=== PATIENT | female | born 1935 | race Native Hawaiian/Other Pacific Islander ===

== ENCOUNTER 2021-09-08 13:33 | Emergency (ER) | payer OTHER ==
[~2021-09-08] VITALS: Ht 157.5 cm; Wt 57.2 kg
[2021-09-08 13:36] VITALS: BP 142/62; TEMP 98.3
[2021-09-08 14:04] LABS: PLATELET COUNT 240 K/uL (152-353)
[2021-09-08 14:13] LABS: POTASSIUM 3.7 mmol/L (3.6-5.2)
== END 2021-09-08 16:18 | disposition home or self-care (01) ==
LOC: ED 13:33
PROVIDERS: Hospitalist
DX: K59.09 Other constipation (principal); E86.0 Dehydration; R11.0 Nausea
CPT/HCPCS: 80053; 85027; 96360; 96374; 99284; J2405

== ENCOUNTER 2021-09-13 18:29 | Emergency (ER) | payer OTHER ==
[~2021-09-13] VITALS: Ht 157.5 cm; Wt 57.2 kg
[2021-09-13 18:39] VITALS: TEMP 97
[2021-09-13 23:00] VITALS: BP 150/58
== END 2021-09-13 23:13 | disposition home or self-care (01) ==
LOC: ED 18:29
DX: K59.09 Other constipation (principal)
CPT/HCPCS: 99284

== ENCOUNTER 2021-09-21 09:53 | Emergency (ER) | payer OTHER ==
[~2021-09-21] VITALS: Ht 157.5 cm; Wt 57.2 kg
[2021-09-21 10:10] VITALS: BP 144/68; TEMP 98.2
[2021-09-21 10:43] LABS: PLATELET COUNT 296 K/uL (152-353)
[2021-09-21 10:46] LABS: POTASSIUM 4.1 mmol/L (3.6-5.2)
== END 2021-09-21 12:21 | disposition home or self-care (01) ==
LOC: ED 09:53
PROVIDERS: Family Medicine
DX: K59.09 Other constipation (principal); R10.84 Generalized abdominal pain
CPT/HCPCS: 36415; 80053; 81000; 82150; 83690; 85027; 99283; J2405

== ENCOUNTER 2022-02-17 09:09 | Emergency (ER) | payer OTHER ==
[~2022-02-17] VITALS: Ht 157.5 cm; Wt 57.2 kg
[2022-02-17 09:50] LABS: PLATELET COUNT 283 K/uL (152-353)
[2022-02-17 09:57] LABS: POTASSIUM 3.7 mmol/L (3.6-5.2)
[2022-02-17 11:33] VITALS: BP 165/74; TEMP 97.9
== END 2022-02-17 11:45 | disposition home or self-care (01) ==
LOC: ED 09:09
PROVIDERS: Emergency Medicine Emergency Medical Services
DX: J20.9 Acute bronchitis, unspecified (principal); Z86.73 Personal history of transient ischemic attack (TIA), and cerebral infarction without residual deficits; Z20.822 Contact with and (suspected) exposure to COVID-19
CPT/HCPCS: 80053; 81002; 83735; 84484; 85027; 87502; 87635; 93005; 96360; 96361; 96365; 99284; J0696; U0003